=== PATIENT | female | born 1955 | race Hispanic/Latino ===

== ENCOUNTER 2025-09-24 18:43 | Emergency (ER) | payer OTHER, MEDICARE ==
[~2025-09-24] VITALS: Ht 170.2 cm; Wt 100.2 kg
--- NOTE | 2025-09-24 20:08 | ERN ---
ED Note History of Present Illness Stated Complaint: BACK PAIN Chief Complaint: Back Pain or Injury Time Seen by MD: 18:48 Time Seen by Midlevel: 18:48 Dictation: The patient is a 69-year-old female with a history of hypothyroidism, hysterectomy, appendectomy who presents to the emergency department with complaints of right buttocks and right lower back pain onset a month ago. Patient denies any trauma. Denies any urinary or fecal incontinence, denies any numbness to lower extremities Allergies: Coded Allergies: No Known Allergies (Verified Allergy, Unknown, 03/11/16) Home Meds No Active Prescriptions or Reported Meds Past Medical History Past Medical History: Hypothyroid Surgical History: Appendectomy, Hysterectomy, RN Note Reviewed/Agreed w/PFSH: Yes Review of System Dictation Constitutional: Negative for fever,chills, and weight loss Eyes: Negative for injury, pain,redness, and discharge ENT: Negative for injury,pain or swelling Cardiovascular: Negative for chest pain, palpitations, and edema Respiratory: Negative for shortness of breath, cough, and wheezing, Abdomen/GI: Negative for abdominal pain, nausea, vomiting, diarrhea, and constipation Back: Negative for injury and pain : Negative for injury, bleeding and discharge MS/Extremity: Positive for low back pain Skin: Negative for rash, and discoloration Neuro: Negative for headache, weakness, numbness, tingling, and seizure Psych: Negative for suicide ideation, homicidal ideation, and hallucinations Initial Vital Sign VS Vital Signs Date Time Temp Pulse Resp B/P (MAP) Pulse Ox O2 Delivery O2 Flow Rate FiO2 09/24/25 18:45 97.9 72 16 154/64 97 Room Air 0 09/24/25 20:22 21 Physical Exam Dictation Vital Signs reviewed General Appearance: Alert, oriented x 3, no acute distress, well developed, no urished. Head and Face: non-traumatic. Eyes: PERRL, pink conjunctivas, eyelid no trauma, anterior chamber with arcus senilis. Ears: Pinnas intact and no signs of trauma or erythema ear canals clear and no discharge TM no erythema Nose: No discharge, no bleeding. Oropharynx: Mouth normal, tongue pink. pharynx clear,no erythema, tonsils no exudates, no abscesses noted, mucous me mbrane moist Neck: Supple, non-tender, no thyromegaly, no masses, no JVD, no bruits Breast:Deferred Chest:No tenderness, no crepitus, no paradoxical movement, no retractions Lungs:Clear, well-ventilated, symmetric, no rales, no wheezing, no rhonchi, no stridor, good breath sounds bilaterally Heart: Regular rate, regular rhythm, no murmur, no gallops Vascular: no peripheral edema, dorsalis pedis 3+ bilateral Abdomen: Soft, positive bowel sounds, nondistended, no guarding, nontender, no rebound, no masses no hepatomegaly, no splenomegaly, no Milton's sign, no hernias. Rectal: Deferred Genital: Deferred Neurological: Normal speech, motor function intact, sensory function intact Musculoskeletal: Neck nontender, full range of motion, back nontender, full range of motion, Extremities: nontender, full range of motion . right buttock tenderness Skin: Color pink, dry, no turgor, no rash, no lacerations, no abrasions, no contusions. Lymphatic: Deferred Results (Laboratory/Radiology) Laboratory/Radiology REASON: pain ORDERING PHYSICIAN: KARYN JIMENEZ PARTS FACILITATOR PROCEDURE: LUMB 2 3VW - LUMBAR SPINE 2-3VWS EXAM: CR Lumbar Spine, 3 views CLINICAL HISTORY: Pain. COMPARISON: None provided. FINDINGS: Lumbar alignment is within normal limits. Mild osteopenia. Mild spondylosis and degenerative disc space narrowing at multiple levels. Normal vertebral body heights. No acute fracture. Presumed pelvic phleboliths. IMPRESSION: No acute bony abnormality is evident. Degenerative changes. /[place] [facility] Reviewed?: Yes ED Course ED Course Orders Procedure Category Date Status Time Lumbar Spine 2-3vws RAD 09/24/25 Resulted 19:03 Orphenadrine Citrate PHA 09/24/25 Complete (Norflex) 19:30 Triamcinolone Acet PHA 09/24/25 Complete 40mg/Ml 1ml (Kenalog 19:30 Ketorolac PHA 09/24/25 Complete Tromethamine 30mg/Ml 21:30 Current Medications Medications (Trade) Dose Ordered Sig/Martín Route PRN Reason Start Time Stop Time Status Last Admin Dose Admin Ketorolac Tromethamine (toRADol) 30 mg ONCE ONCE IM 09/24/25 21:30 09/24/25 21:31 DC 09/24/25 21:22 Orphenadrine Citrate (Norflex) 60 mg ONCE ONCE IM 09/24/25 19:30 09/24/25 19:31 DC 09/24/25 20:21 Triamcinolone Acetonide (Kenalog 40) 40 mg ONCE ONCE IM 09/24/25 19:30 09/24/25 19:31 DC 09/24/25 20:22 Vital Signs Date Time Temp Pulse Resp B/P (MAP) Pulse Ox O2 Delivery O2 Flow Rate FiO2 09/24/25 20:22 98.2 75 18 160/58 97 Room Air* 0 21 09/24/25 18:45 97.9 72 16 154/64 97 Room Air 0 Medical Decision Making MDM The patient is a 69-year-old female with a history of hypothyroidism, hysterectomy, appendectomy who presents to the emergency department with complaints of right buttocks and right lower back pain onset a month ago. Patient denies any trauma. Denies any urinary or fecal incontinence, denies any numbness to lower extremities Lumbar xray showed no bony abnormalities. fractures. On physical exam patient is in no acute distress. Non toxic appearance. neurovascular intact. No urinary or fecal incontinence. Patient will be discharge to follow up with PCP. Differential diagnosis: Sciatic nerve pain, lumbar fracture lumbar sprain Need for hospitalization: Patient does not meet criteria for hospitalization. There are no social concerns with this patient. DX & DISP Disposition: Discharge Departure Impression: Primary Impression: Sciatica of right side Condition: Stable Scripts Ibuprofen (Ibuprofen) 600 Mg Tablet 1 TAB PO TID for pain for 10 Days, #30 TAB 0 Refills with food Prov: KARYN JIMENEZ 09/24/25 Cyclobenzaprine HCl (Flexeril) 10 Mg Tab 10 MG PO TID for muscle sstiffness, #14 TAB 0 Refills Prov: KARYN JIMENEZ 09/24/25 Prednisone (Prednisone) 20 Mg Tablet 1 TAB PO AD for 6 Days, #14 TAB 0 Refills TAKE 1 TAB BY MOUTH THREE TIMES PER DAY X3 DAYS, THEN TAKE 1 TAB BY MOUTH TWICE A DAY X2 DAYS, THEN TAKE 1 TAB BY MOUTH ONCE A DAY X1 DAY. Prov: KARYN JIMENEZ 09/24/25 Additional Instructions: Your Xray showed no fractures or dislocations. Please take your medications as prescribed. Take medications with food. If anything worsens please return to ER. FOLLOW-UP WITH PRIMARY CARE PROVIDER IN 1 TO 2 DAYS. TAKE MEDICATIONS DIRECTED HERE IN THE EMERGENCY ROOM. OKAY TO CONTINUE HOME MEDICATIONS UNLESS OTHERWISE DISCUSSED DURING YOUR VISIT IN THE EMERGENCY ROOM TODAY. RETURN TO YOUR NEAREST EMERGENCY ROOM IF SYMPTOMS WORSEN OR IF THERE IS NO IMPROVEMENT. CALL 911 IF YOU NEED IMMEDIATE ASSISTANCE. TAKE TYLENOL [id number] NEEDED AND IF NO CONTRAINDICATIONS ARE PRESENT. INCREASE ORAL HYDRATION. A WOUND CULTURE OR URINE CULTURE WAS ORDERED HERE IN THE EMERGENCY ROOM DEPARTMENT PLEASE FOLLOW-UP WITH PRIMARY CARE PROVIDER AND ADVISE THEM TO GET REPEAT PORTS FROM OUR FACILITY. IF YOU HAD ANY BAL WRAP/SPLINTS THAT WERE APPLIED HERE, PLEASE DO NOT REMOVE THEM UNTIL YOU SEE YOUR PRIMARY CARE OR SPECIALTY. Referrals: SELF,REFERRAL (PCP) Time of Disposition: 21:23 I have reviewed the case, and I agree with, Diagnosis and Plan KARYN JIMENEZ Sep 24, 2025 20:08
[2025-09-24] MEDS: ORPHENADRINE 60MG/2ML IM ONE (20:21)
[2025-09-24] MEDS: TRIAMCINOLONE ACETONIDE 40 MG/ML 1ML VIAL IM ONE (20:22)
--- NOTE | 2025-09-24 21:10 | HMCIMG ---
EXAM: CR Lumbar Spine, 3 views CLINICAL HISTORY: Pain. COMPARISON: None provided. FINDINGS: Lumbar alignment is within normal limits. Mild osteopenia. Mild spondylosis and degenerative disc space narrowing at multiple levels. Normal vertebral body heights. No acute fracture. Presumed pelvic phleboliths. IMPRESSION: No acute bony abnormality is evident. Degenerative changes. /[place]
[2025-09-24] MEDS ORDERED: PRED20TA3 PO (21:39)
[2025-09-24] MEDS ORDERED: IBUP-1492 PO (21:39)
[2025-09-24] MEDS ORDERED: CYCL10TA16 PO (21:39)
[2025-09-24 21:41] VITALS: BP 156/72; PULSE 62; RESP 18; TEMP 98.5; O2SAT 99
== END 2025-09-24 21:45 | disposition home or self-care (01) ==
LOC: EDH 18:43
DX: M54.41 Lumbago with sciatica, right side (principal); E03.9 Hypothyroidism, unspecified; Z90.710 Acquired absence of both cervix and uterus; Z90.49 Acquired absence of other specified parts of digestive tract; Z98.890 Other specified postprocedural states
CPT/HCPCS: 99284; 72100; 96372 ×3; J1885; J3301; J2360